=== PATIENT | male | born 1995 | race Caucasian/White ===

== ENCOUNTER 2017-08-14 08:05 | Outpatient (CLI) | payer BC ==
--- NOTE | 2017-08-14 09:50 | MRI ---
MRI LUMBAR SPINE WITHOUT CONTRAST: History: M51.26 - herniated lumbar disc without myelopathy. Comparison: None. FINDINGS: The paraspinal musculature is normal. No atrophy. The aortic contour is non-aneurysmal. The exam is l imited due to motion artifact. The conus medullaris terminates at the mid-L1 vertebral body. Levels are as follows: T12-L1: Normal disc. No significant neural foraminal or spinal canal narrowing. L1-2: Normal disc. No significant neural foraminal or spinal canal narrowing. L2-3: Normal disc. No significant neural foraminal or spinal canal narrowing. L3-4: Mild posterior degenerative disc space height loss. Mild facet arthropathy. No significant neur al foraminal or spinal canal narrowing. L4-5: Moderate disc desiccation. There is a central and bilateral paracentral posterior disc protrusi on. This protrusion narrows the spinal canal to approximately 4 mm. Mild facet arthrosis. No signific ant neural foraminal narrowing. L5-S1: There is a central and bilateral paracentral posterior disc protrusion. Moderate facet arthros is. Mild bilateral neural foraminal narrowing. Spinal canal is narrowed to approximately 4 mm. IMPRESSION: 1. Moderate spondylosis of L4 and L5-S1 causing moderate spinal canal narrowing with superimposed con genitally short pedicles. POS: [facility]
== END 2017-08-14 08:06 | disposition home or self-care (01) ==
LOC: TBSIIMAG 08:05
PROVIDERS: ATTEND Family Medicine
DX: M51.26 Other intervertebral disc displacement, lumbar region (principal); M47.816 Spondylosis without myelopathy or radiculopathy, lumbar region; M48.061 Spinal stenosis, lumbar region without neurogenic claudication
CPT/HCPCS: 72148

== ENCOUNTER 2017-09-30 08:01 | Outpatient (CLI) | payer BC, OTHER | END 2017-09-30 08:02 | disposition home or self-care (01) | PROVIDERS: ATTEND Family Medicine | DX: M47.817 Spondylosis without myelopathy or radiculopathy, lumbosacral region (principal) ==

== ENCOUNTER 2018-02-12 03:34 | Emergency (ER) | payer BC, OTHER ==
[2018-02-12] MEDS ORDERED: HYDROcodone/Acetaminophen 5/325 mg Tablet ONE ×2 (04:49→04:50)
--- NOTE | 2018-02-12 08:33 | RAD ---
RADIOGRAPH LEFT LEG TIBIA AND FIBULA 2 VIEWS: Date: 02/12/18 HISTORY: 22-year-old male with traumatic acute left leg pain from fall. FINDINGS: There is no fracture or any other major osseous abnormality of the tibia or fibula. IMPRESSION: Negative. POS: [facility]
--- NOTE | 2018-02-12 08:36 | RAD ---
RADIOGRAPH LEFT KNEE 2 VIEWS: Date: 02/12/18 Time: 0327 hours HISTORY: 22-year-old male status post acute left knee trauma from fall. TECHNIQUE: AP view and malpositioned lateral view. No other views. FINDINGS: No fracture is identified, but the study is limited without additional views, and because of the malp ositioned lateral view. No dislocation. IMPRESSION: No fracture identified. POS: [facility]
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
== END 2018-02-12 05:25 | disposition home or self-care (01) ==
LOC: ERS 03:34
DX: M79.605 Pain in left leg (principal); R51 Headache; Z79.899 Other long term (current) drug therapy; W06.XXXA Fall from bed, initial encounter
CPT/HCPCS: 70450; 72125

== ENCOUNTER 2018-02-19 09:20 | Outpatient (CLI) | payer BC ==
[2018-02-19 10:02] LABS: Hemoglobin 16.3 g/dL (14.0-18.0); Mean Corpuscular HGB CONC 35.6 g/dL (32.0-36.0); Mean Corpuscular Hemoglobin 30.7 pg (27.0-31.0); Mean Corpuscular Volume 86.3 fL (78.0-98.0); Mean Platelet Volume 7.3 fL (7.4-10.4); Platelet Count 273 thou/uL (130-400); Red Blood Cell (RBC) Count 5.29 mill/uL (4.70-6.10); White Blood Cell (WBC) Count 6.8 thou/uL (4.8-10.8)
[2018-02-19 10:11] LABS: Prothrombin Time 13.2 SEC (12.0-14.7)
[2018-02-19 10:18] LABS: Anion Gap 15 mmol/L (10-20); BUN (Urea Nitrogen) 13 mg/dL (8.9-20.6); Calc. Creatinine Clearance 0 mL/min (70-130); Calcium 9.5 mg/dL (7.8-10.44); Carbon Dioxide 21 mmol/L (22-29); Chloride 107 mmol/L (98-107); Estimated GFR-MDRD Greater than 90; Glucose 96 mg/dL (70-105); Potassium 4.6 mmol/L (3.5-5.1); Sodium 138 mmol/L (136-145)
--- NOTE | 2018-02-19 12:19 | EKG ---
Test Reason : Blood Pressure : / mmHG Vent. Rate : 052 BPM Atrial Rate : 052 BPM P-R Int : 172 ms QRS Dur : 086 ms QT Int : 400 ms P-R-T Axes : 022 058 -06 degrees QTc Int : 372 ms Sinus bradycardia Cannot rule out Anterior infarct , age undetermined /(Doubtful) T wave abnormality, consider inferior ischemia Abnormal ECG No previous ECGs available Confirmed by JEAN DESIR ([id number]) on 02/19/2018 12:19:37 PM Referred By: ARNALDO Confirmed By:JEAN DESIR
== END 2018-02-19 09:21 | disposition home or self-care (01) ==
LOC: LABBT 09:20
PROVIDERS: ATTEND Surgery
DX: Z01.818 Encounter for other preprocedural examination (principal); M51.16 Intervertebral disc disorders with radiculopathy, lumbar region
CPT/HCPCS: 80048; 85027; 85610; 85730; 93005; 93010

== ENCOUNTER 2018-02-27 11:42 | Day surgery (SDC) | payer BC ==
[~2018-02-27 11:42] MED LIST: Glycopyrrolate 0.2 MG/ML 5 ML SYRINGE ONE; Lidocaine 1% PF 5 ML VIAL ONE; Metoclopramide HCl 10 MG/2 ML VIAL ONE; Ondansetron HCl/PF 4 MG/2 ML Vial ONE; PHENYLEPHRINE-NS 100 MCG/ML 10 ML SYRINGE ONE; PROPOFOL 200 MG/20 ML VIAL ONE; Vecuronium 10 MG VIAL ONE
[2018-02-27] MEDS ORDERED: CEFAZOLIN/Water 2 GM/20 ML SYRINGE ONE (12:22)
[2018-02-27] MEDS ORDERED: Midazolam HCl 2 mg/2 ml Vial ONE ×2 (14:57→19:06)
[2018-02-27] MEDS ORDERED: Bacitracin Zinc Ointment 30 gm TUBE ONE (15:56)
[2018-02-27] MEDS ORDERED: Thrombin 5000 UNITS/5 ML VIAL ONE (15:56)
[2018-02-27] MEDS ORDERED: Sodium Chloride 0.9% 10 ML ONE (15:56)
[2018-02-27] MEDS ORDERED: Fentanyl 100 MCG/2 ML VIAL ONE ×3 (16:05→20:10)
[2018-02-27] MEDS ORDERED: HYDROcodone/Acetaminophen 7.5/325 mg Tablet PO PRN (19:33)
[2018-02-27] MEDS ORDERED: Mag-Al 1200 mg/1200 mg/30 ML UDCUP PO PRN (19:33)
[2018-02-27] MEDS ORDERED: Acetaminophen/Codeine 30-300mg Tablet PO PRN (19:33)
[2018-02-27] MEDS ORDERED: traMADol HCl 50 MG TAB PO PRN (19:33)
[2018-02-27] MEDS ORDERED: Fleet Enema 133 ML BOT PR PRN (19:33)
[2018-02-27] MEDS ORDERED: Bisacodyl 10 MG SUPP PR PRN (19:33)
[2018-02-27] MEDS ORDERED: Meperidine HCl/PF 25 MG/ML VIAL SLOW IVP PRN ×2 (19:33→19:37)
[2018-02-27] MEDS ORDERED: Milk Of Magnesia 30 ML UDCUP PO PRN (19:33)
[2018-02-27] MEDS ORDERED: Acetaminophen 325 MG TAB PO PRN (19:33)
[2018-02-27] MEDS ORDERED: Promethazine HCl 25 MG/ML VIAL IM PRN ×2 (19:37→23:31)
[2018-02-27] MEDS ORDERED: HYDROmorphone 2 MG/ML VIAL SLOW IVP PRN (19:37)
[2018-02-27] MEDS ORDERED: Ondansetron HCl/PF 4 MG/2 ML Vial IVP PRN (19:37)
[2018-02-27] MEDS ORDERED: Promethazine HCl 25 MG/ML VIAL SLOW IVP PRN (19:37)
[2018-02-27] MEDS ORDERED: Gabapentin 300 MG CAP PO PRN (20:00)
[2018-02-27] MEDS ORDERED: Pregabalin 75 MG CAP PO PRN (21:00)
[2018-02-27] MEDS: Promethazine HCl 25 MG/ML VIAL IM PRN (21:38)
[2018-02-27] MEDS: CEFAZOLIN/Water 2 GM/20 ML SYRINGE SLOW IVP SCH (22:00)
[2018-02-27] MEDS: Sodium Chloride 0.9% 1,000 ML IV SCH (22:09)
[2018-02-27] MEDS: tiZANidine HCl 4 MG TAB PO PRN (22:40)
[2018-02-27] MEDS ORDERED: diphenhydrAMINE 50 MG/ML VIAL IVP PRN (23:31)
[2018-02-27] MEDS ORDERED: diphenhydrAMINE 25 MG CAP PO PRN (23:31)
[2018-02-27] MEDS ORDERED: Naloxone HCl 0.4 mg/ml Vial IV PRN (23:31)
[2018-02-27] MEDS ORDERED: fentaNYL Citrate/PF 2,000 MCG in Sodium Chloride 0.9% 60 ML IV PRN (23:31)
[2018-02-27] MEDS ORDERED: diphenhydrAMINE 50 MG/ML VIAL IM PRN (23:31)
[2018-02-27] MEDS ORDERED: Zolpidem Tartrate 5 MG TAB PO PRN (23:31)
[2018-02-27] MEDS ORDERED: Communication Order-Pharmacy FS SCH (23:45)
[2018-02-28] MEDS: Ondansetron HCl/PF 4 MG/2 ML Vial IVP PRN (01:02)
[2018-02-28] MEDS: CEFAZOLIN/Water 2 GM/20 ML SYRINGE SLOW IVP SCH (03:56)
[2018-02-28] MEDS: Promethazine HCl 25 MG/ML VIAL IM PRN (04:29)
[2018-02-28] MEDS ORDERED: HYDROcodone/Acetaminophen 10/325 mg Tablet PO PRN (11:42)
[2018-02-28] MEDS ORDERED: traMADol HCl 50 MG TAB PO PRN (11:43)
[2018-02-28] MEDS: HYDROcodone/Acetaminophen 10/325 mg Tablet PO PRN ×3 (12:46→20:52)
[2018-02-28] MEDS: tiZANidine HCl 4 MG TAB PO PRN ×2 (13:56→20:52)
[2018-02-28] MEDS: Sodium Chloride 0.9% 1,000 ML IV SCH ×2 (16:48→23:07)
[2018-02-28] MEDS: traMADol HCl 50 MG TAB PO PRN (18:30)
[2018-02-28] MEDS ORDERED: Gabapentin 100 MG CAP PO SCH (18:30)
--- NOTE | 2018-02-28 18:52 | PRG ---
DATE OF SERVICE: 02/28/2018 SUBJECTIVE: Mr. Nicholson is day 1 from an L4-L5, L5-S1 laminectomies and discectomies. He had decrease d sensation and increased pain in left lower extremity. His sensation has started to return. His li ght touch sensation is intact. He has excellent strength throughout his bilateral lower extremities with improvement. He states his preoperative leg pain postoperative incisional pain has been t he main issue. He has had no signs or symptoms of CSF hypotension with no worrisome finding in regar ds to the wound. We will plan to mobilize him today that I highly recommend weight loss, his a natomy, body habitus was really near the limits of our instruments that we use in surgery, so he stat es he will work on this. I anticipate dismissal likely later today or tomorrow.
[2018-02-28] MEDS: Gabapentin 300 MG CAP PO SCH (20:52)
--- NOTE | 2018-02-28 22:50 | OP ---
DATE OF SURGERY: 02/27/2018 OR: 12. WOUND TYPE: Type 1 wound. SURGEON: Duran Herrmann M.D. CHOIRMASTER: Manav Thibodeaux PA-C. PREPROCEDURE DIAGNOSIS: L4-5, L5-S1 disk extrusions with morbid obesity. POSTPROCEDURE DIAGNOSIS: L4-5, L5-S1 disk extrusions with morbid obesity. PROCEDURES: L4-L5, L5-S1 laminectomies, partial facetectomies, foraminotomies with diskectomy, use o f operative microscope for microdissection. DESCRIPTION OF PROCEDURE: After informed consent was obtained with the patient, the patient brought to OR. Proper patient pause and identification was carried out. He was positioned prone on the OR t able. All appropriate points were padded. We identified following positioning prone in the L4-L5, L 5-S1 segments. A linear roxanna was made is in this region. This area was sterilely cleansed, prepared , and draped. Proper patient pause and identification was carried out. The wound was then opened wi th a combination of sharp, monopolar and blunt dissection proceeded to the L4, L5 and S1 dorsal spine s and lamina. Exposure was quite challenging given the patient's body habitus and we were working at the limit of our instruments. However, localization film confirmed our area of interest. We then p erformed L4-L5, L5-S1 laminectomies, partial facetectomies. Working over the left L5 nerve roots, th e dura was quite thin, small amount of spinal fluid was leaked. This was then stopped. Microscope w as then brought in the field. Working over the left L5 nerve root, disk material was removed at the 4-5 segment. We then turned our attention to the right S1 segment with right S1 region of the latera l recess and retraction occurred at that segment and disk material was removed at the right L5-S1 seg ment. We had excellent decompression of bilateral L4, bilateral L5 and bilateral S1 nerve roots. Va lsalva maneuver was performed following placement of DuraSeal. There was no spinal fluid leak. Copi ous irrigation occurred throughout. The wound was then closed in anatomic layers. Again, following the sprinkling of vancomycin powder and meticulous hemostasis, the patient emerged from anesthesia.
[2018-02-28 23:44] VITALS: BMI 44.4
[2018-03-01] MEDS: HYDROcodone/Acetaminophen 10/325 mg Tablet PO PRN ×5 (00:52→21:02)
[2018-03-01] MEDS: traMADol HCl 50 MG TAB PO PRN ×3 (03:10→16:07)
[2018-03-01] MEDS: Ondansetron HCl/PF 4 MG/2 ML Vial IVP PRN ×2 (03:12→21:01)
[2018-03-01] MEDS: tiZANidine HCl 4 MG TAB PO PRN ×2 (03:12→22:07)
[2018-03-01] MEDS: Gabapentin 300 MG CAP PO SCH ×3 (08:29→20:13)
[2018-03-01] MEDS ORDERED: methylPREDNISolone 4 mg Tablet PO SCH (12:00)
[2018-03-01] MEDS: Sodium Chloride 0.9% 1,000 ML IV SCH (12:47)
[2018-03-01] MEDS: methylPREDNISolone 4 mg Tablet PO SCH ×3 (12:48→20:14)
--- NOTE | 2018-03-01 14:13 | PRG ---
DATE OF SERVICE: 03/01/2018 Mr. Nicholson is postoperative day 2 from L4-L5, L5-S1 laminectomies and discectomies. Pain control has been the biggest issue. 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 This morning he missael ears to be quite drowsy. He states that he has had paresthesias and pain in bilateral lower extremit ies, similar to preoperatively. I think this is just radiculitis as his leg pain was improved yester day. He is mobilizing to a commode, but he did have headache at the latter end of his mobilization. His wound dressing is dry with no evidence of active leak from his wound. We will continue to monit or this. I think the patient's body habitus coupled with his longstanding neural element compression simply leading to a prolonged hospitalization. We will work aggressively on pain management and hop efully work towards dismissal in the next 48 hours.
[2018-03-01] MEDS ORDERED: CEFAZOLIN 2 GM in Sodium Chloride 0.9% 100 ML IVPB SCH (17:48)
[2018-03-01] MEDS ORDERED: CEFAZOLIN/Water 2 GM/20 ML SYRINGE SLOW IVP SCH (20:00)
[2018-03-01] MEDS ORDERED: Ondansetron ODT 4 MG TAB PO PRN (21:39)
[2018-03-01] MEDS: Cephalexin 250 MG CAP PO SCH (22:08)
[2018-03-02] MEDS: Sodium Chloride 0.9% 1,000 ML IV SCH ×2 (00:01→12:45)
[2018-03-02] MEDS: HYDROcodone/Acetaminophen 10/325 mg Tablet PO PRN ×3 (02:02→14:24)
[2018-03-02] MEDS: tiZANidine HCl 4 MG TAB PO PRN (04:21)
[2018-03-02] MEDS: Cephalexin 250 MG CAP PO SCH ×2 (04:21→12:39)
[2018-03-02] MEDS: Gabapentin 300 MG CAP PO SCH ×2 (09:56→14:27)
[2018-03-02] MEDS: methylPREDNISolone 4 mg Tablet PO SCH ×2 (09:56→12:40)
--- NOTE | 2018-03-02 11:24 | PRG ---
DATE OF SERVICE: 03/02/2018 Manav Thibodeaux PA-C., dictating for Duran Herrmann MD Mr. Nicholson is now postoperative day #3, having undergone L4-S1 laminectomies, partial facetectomies, f oraminotomies with diskectomies. The patient states that he feels about the same as he did yesterday . He continues to have back pain and leg pain and feels somewhat weak with his legs. He is, however , able to walk without assistance to the bathroom. He states he has had no drainage from his incisio n. He states that he would like to go home later today after receiving pain medications. He is slow to move his left lower extremity, but eventually when he gets a good effort he has full strength in the bilateral lower extremities. His incision is covered with a dressing, and when uncovered, there is a scant amount of drainage on the incision consistent with serous drainage, but no active drainage , and the incision was without significant swelling. Counseled the patient and his that he will probably heal well postoperatively and again would like to go home later today. So, we will check b ack. When he receives his pain medications, he states he is helped for a brief amount of time p.o. I have sent him home with gabapentin, Medrol Dosepak, and Pepcid as well as narcotic pain medication. He has kept some solids down, has pied and has had a bowel movement. Again, we will check back lat er today, but plan for dismissal later today.
[2018-03-02 12:15] VITALS: BP 113/74; TEMP 97.8
[2018-03-02] MEDS ORDERED: methylPREDNISolone 4 mg Tablet PO SCH (21:00)
[2018-03-03] MEDS ORDERED: methylPREDNISolone 4 mg Tablet PO SCH (08:00)
[2018-03-04] MEDS ORDERED: methylPREDNISolone 4 mg Tablet PO SCH (08:00)
[2018-03-05] MEDS ORDERED: methylPREDNISolone 4 mg Tablet PO SCH (08:00)
[2018-03-06] MEDS ORDERED: methylPREDNISolone 4 mg Tablet PO SCH (08:00)
== END 2018-03-02 16:30 | disposition home or self-care (01) ==
LOC: SDC 11:42 → SJJU 20:28 → SDC 03-02 16:30
PROVIDERS: ATTEND Surgery
PROC: 01NB0ZZ Release Lumbar Nerve, Open Approach (ICD-10-PCS; principal; 2018-02-27)
PROC: 0SB20ZZ Excision of Lumbar Vertebral Disc, Open Approach (ICD-10-PCS; principal; 2018-02-27)
DX: M51.16 Intervertebral disc disorders with radiculopathy, lumbar region (principal); M51.27 Other intervertebral disc displacement, lumbosacral region; Z88.8 Allergy status to other drugs, medicaments and biological substances; E66.01 Morbid (severe) obesity due to excess calories; Z68.41 Body mass index [BMI] 40.0-44.9, adult
CPT/HCPCS: 76001; 96374; A4216; J0131; J2001; J2175; J2250; J2405; J2550; J2704; J2765; J3010; J3370; J3490; J7050; Q0162

== ENCOUNTER 2018-03-03 13:06 | Emergency (ER) | payer BC ==
[2018-03-03] MEDS ORDERED: Fentanyl 100 MCG/2 ML VIAL ONE (13:29)
[2018-03-03 14:30] LABS: #Basophils 0.1 thou/uL (0.0-0.2); #Eosinphils 0.1 thou/uL (0.0-0.7); #Lymphocytes 2.8 thou/uL (1.20-3.40); #Monocytes 0.7 thou/uL (0.11-0.59); #Neutrophils 4.8 thou/uL (1.40-6.50); %Basophils 0.6 % (0.0-1.0); %Eosinophils 1.2 % (0.0-10.0); %Lymphocytes 33.5 % (21.0-51.0); %Monocytes 8.1 % (0.0-10.0); %Neutrophils 56.5 % (42.0-75.0); Hemoglobin 12.8 g/dL (14.0-18.0); Mean Corpuscular HGB CONC 33.4 g/dL (32.0-36.0); Mean Corpuscular Hemoglobin 29.7 pg (27.0-31.0); Mean Corpuscular Volume 88.9 fL (78.0-98.0); Mean Platelet Volume 7.5 fL (7.4-10.4); Platelet Count 244 thou/uL (130-400); RBC Distribution Width 12.1 % (11.5-14.5); Red Blood Cell (RBC) Count 4.31 mill/uL (4.70-6.10); White Blood Cell (WBC) Count 8.4 thou/uL (4.8-10.8)
[2018-03-03 14:48] LABS: ALT (SGPT) 32 U/L (8-55); AST (SGOT) 23 U/L (5-34); Albumin 4.1 g/dL (3.5-5.0); Alkaline Phosphatase 48 U/L (40-150); Anion Gap 13 mmol/L (10-20); BUN (Urea Nitrogen) 13 mg/dL (8.9-20.6); Bilirubin, Total 0.3 mg/dL (0.2-1.2); Calc. Creatinine Clearance 0 mL/min (70-130); Calcium 8.9 mg/dL (7.8-10.44); Carbon Dioxide 27 mmol/L (22-29); Chloride 103 mmol/L (98-107); Estimated GFR-MDRD Greater than 90; Glucose 104 mg/dL (70-105); Potassium 3.7 mmol/L (3.5-5.1); Protein, Total 7.1 g/dL (6.0-8.3); Sodium 139 mmol/L (136-145)
== END 2018-03-03 15:30 | disposition home or self-care (01) ==
LOC: ERS 13:06
DX: R51 Headache (principal); Z79.891 Long term (current) use of opiate analgesic; Z79.899 Other long term (current) drug therapy
CPT/HCPCS: 80053; 85025; 96361; 96374; J3010

== ENCOUNTER 2025-05-24 11:43 | Outpatient (CLI) | payer BC | END 2025-05-24 11:44 | disposition home or self-care (01) | LOC: SCSRAD 11:43 | PROVIDERS: ATTEND Nurse Practitioner Family | DX: S99.912A Unspecified injury of left ankle, initial encounter (principal) ==